=== PATIENT | female | born 1955 | race Caucasian/White ===

== ENCOUNTER → 2016-11-05 | Outpatient (CLI) | payer MEDICARE, OTHER ==
[2016-11-05 14:38] LABS: POTASSIUM 4.1 mmol/L (3.5-5.1)
== END | disposition home or self-care (01) ==
LOC: LAB 14:00
PROVIDERS: ATTEND Internal Medicine Cardiovascular Disease
DX: R53.83 Other fatigue (principal)
CPT/HCPCS: 36415; 80051

== ENCOUNTER 2018-04-01 20:33 | Emergency (ER) | payer MEDICARE, OTHER ==
[~2018-04-01] VITALS: Ht 167.6 cm; Wt 67.6 kg
[~2018-04-01 20:33] MED LIST: CARV12.52 PO; CARV25TA2 PO; CLON1TAB4 PO; ESCITALOPRAM OX20 MG PO; LISD70CA5 PO; OMEP20TA8 PO; OXYC-411 PO
--- NOTE | 2018-04-01 20:49 | PHYS DOC ---
Past Medical History Past Medical History: Anxiety, Depression, GERD, Heart Disease, Hypertension, Other Additional Past Medical Histor: DDD, Back Pain, Sick Sinus Syndrome, PTSD Past Surgical History: Cholecystectomy, Gastric Bypass, Pacemaker, Other Additional Past Surgical Histo: carpal tunnel release Alcohol Use: Rarely Drug Use: None Adult General Chief Complaint Chief Complaint: CHEST PAIN [facility] HPI Patient is a 63 year old female who presents with chest pain. She states that yesterday she had a retrosternal dull chest pain that did not radiate. She states it was not worse with exertion and did not have associated shortness of breath. There is no associated vomiting. She states that she has had previous episodes. She also admits to a mild orthostatic lightheadedness. Review of Systems Review of Systems Constitutional: Denies fever or chills Eyes: Denies change in visual acuity, redness, or eye pain HENT: Denies nasal congestion or sore throat Respiratory: Denies cough or shortness of breath Cardiovascular: No additional information not addressed in HPI GI: Denies abdominal pain, nausea, vomiting, bloody stools or diarrhea : Denies dysuria or hematuria Musculoskeletal: Denies back pain or joint pain Integument: Denies rash or skin lesions Neurologic: Denies headache, focal weakness or sensory changes Endocrine: Denies polyuria or polydipsia All other systems were reviewed and found to be within normal limits, except as documented in this note. Current Medications Current Medications Current Medications Medications (Trade) Dose Ordered Sig/Darron Start Time Stop Time Status Last Admin Dose Admin Potassium Chloride (Klor-Con) 40 meq 1X ONCE 04/01/18 21:45 04/01/18 21:46 DC 04/01/18 21:55 40 MEQ see list Allergies Allergies Allergies Coded Allergies Type Severity Reaction Last Updated Verified Sulfa (Sulfonamide Antibiotics) Allergy Intermediate Rash 07/06/17 Yes Physical Exam Physical Exam GENERAL: Awake, alert, well appearing, nontoxic HEAD/NECK/EYES: Normocephalic, Neck supple, PERRL ENT Airway patent, mucous membranes moist RESP: Nontachypneic, no respiratory distress, normal breath sounds bilaterally CV: Regular rhythm, normal perfusion ABD/GI: Soft, non-tender, no guarding, no rebound, no palpable pulsatile mass BACK: Inspection NL EXT: Neurovascularly intact, no deformities SKIN: Warm, dry NEURO: Oriented X3, normal speech, no motor deficits, no sensory deficits, CN II - XII intact PSYCH: Cooperative, appropriate affect Current Patient Data Vital Signs Vital Signs Date Time Temp Pulse Resp B/P (MAP) Pulse Ox O2 Delivery O2 Flow Rate FiO2 04/01/18 21:53 61 148/77 (100) 98 Room Air 04/01/18 21:13 21 04/01/18 20:33 98.3 98.3 Lab Values Laboratory Tests Test 04/01/18 20:55 White Blood Count 8.6 x10^3/uL (4.0-11.0) Red Blood Count 3.87 x10^6/uL (3.50-5.40) Hemoglobin 12.6 g/dL (12.0-15.5) Hematocrit 36.0 % (36.0-47.0) Mean Corpuscular Volume 93 fL (79-100) Mean Corpuscular Hemoglobin 33 pg (25-35) Mean Corpuscular Hemoglobin Concent 35 g/dL (31-37) Red Cell Distribution Width 13.3 % (11.5-14.5) Platelet Count 178 x10^3/uL (140-400) Neutrophils (%) (Auto) 59 % (31-73) Lymphocytes (%) (Auto) 30 % (24-48) Monocytes (%) (Auto) 8 % (0-9) Eosinophils (%) (Auto) 2 % (0-3) Basophils (%) (Auto) 1 % (0-3) Neutrophils # (Auto) 5.1 x10^3uL (1.8-7.7) Lymphocytes # (Auto) 2.6 x10^3/uL (1.0-4.8) Monocytes # (Auto) 0.7 x10^3/uL (0.0-1.1) Eosinophils # (Auto) 0.2 x10^3/uL (0.0-0.7) Basophils # (Auto) 0.1 x10^3/uL (0.0-0.2) Sodium Level 145 mmol/L (136-145) Potassium Level 3.1 mmol/L (3.5-5.1) L Chloride Level 107 mmol/L (98-107) Carbon Dioxide Level 30 mmol/L (21-32) Anion Gap 8 (6-14) Blood Urea Nitrogen 6 mg/dL (7-20) L Creatinine 0.9 mg/dL (0.6-1.0) Estimated GFR (Cockcroft-Gault) 63.7 BUN/Creatinine Ratio 7 (6-20) Glucose Level 75 mg/dL (70-99) Calcium Level 9.1 mg/dL (8.5-10.1) Total Bilirubin 0.2 mg/dL (0.2-1.0) Aspartate Amino Transferase (AST) 14 U/L (15-37) L Alanine Aminotransferase (ALT) 16 U/L (14-59) Alkaline Phosphatase 130 U/L (46-116) H Troponin I Quantitative < 0.017 ng/mL (0.000-0.055) Total Protein 5.9 g/dL (6.4-8.2) L Albumin 2.5 g/dL (3.4-5.0) L Albumin/Globulin Ratio 0.7 (1.0-1.7) L Lipase 67 U/L (73-393) L Laboratory Tests 04/01/18 20:55 Laboratory Tests 04/01/18 20:55 EKG EKG EKG interpreted by me at 8:45 PM reveals sinus rhythm at [address] or T- wave changes concerning for acute ischemia. QTC 436 ms. HEART SCORE REFERENCE---- Risk factors considered for determining a patient's HEART Score include: hypercholesterolemia (hyperlipidemia), hypertension, diabetes mellitus, cigarette smoking, positive family history and obesity. Major Adverse Cardiac Events (MACE) include: acute myocardial infarction, ischaemic stroke, coronary arterial occlusion and . References: Tim PARDO, Pedrito BERKOWITZ, et al. Chest pain in the emergency room: value of the HEART score. Net Heart J. 2008 Lai:16(6):191-6. PubMed PMID: [id number]; PubMed Central PMCID: [id number]. Pedrito BERKOWITZ, Tim PARDO, et al. A prospective validation of the HEART score for chest pain patients at the emergency department. Int J Cardiol. 2013 Apr 3:168(3):2153 -8. Doi: 10.1016/j.ijcard.2013.01.255. Epub 2012Sep 25. PubMed PMID: [id number]. History (Highly suspicious- 2 ; Moderately suspicious- 1 ; Slightly suspicious- 0)- 0 EKG (Significant ST deviation- 2; Nonspecific repol disturbance- 1; Normal- 0)- 0 Age: ( 65 or older- 2 points ; 46 through 64- 1 point ; 45 and younger- 0 point) - 1 Risk Factors: (Three or more- 2 points ; One or Two- 1 point ; None known- 0)- 1 Troponin: (3x upper limit- 2 points ; Abnormal- 1 point ; Normal- 0 points)- 0 Total: 2 Radiology/Procedures Radiology/Procedures []AP portable chest x-ray interpreted by me reveals no acute cardiac process, no confluent infiltrates, no pneumothorax. Official radiology interpretation to follow. Wet read put in the computer. PATIENT: AISHA CURRY ACCOUNT: [id number] : 1955 LOCATION: ER AGE: 63 SEX: F EXAM STATUS: REG ER ORD. PHYSICIAN: PACO CHRISTENSEN DO REASON: dizziness, ams PROCEDURE: CT HEAD WO CONTRAST PQRS Compliance statement: One or more of the following individualized dose reduction techniques were utilized for this examination: 1. Automated exposure control. 2. Adjustment of the mA and/or kV according to patient size. 3. Use of iterative reconstruction technique. Indication:syncope, dizziness, ams, prior sent TECHNIQUE: CT head without IV contrast COMPARISON:12/03/2012 FINDINGS: No pathologic extra-axial or intra-axial fluid collection. The ventricles and basal cisterns are within normal limits. No acute intracranial bleed. No focal loss of eddy-white differentiation. The orbits are within normal limits. No suspicious calvarial lesion. Visualized paranasal sinuses and mastoid air cells are clear. IMPRESSION: No acute intracranial process. If concern for acute ischemic stroke is high, please consider MRI brain. Electronically signed by: Suleman Noriega DO (04/01/2018 10:03 PM) [facility] Course & Med Decision Making Course & Med Decision Making Pertinent Labs and Imaging studies reviewed. (See chart for details) 9:20pm- went back in to check on patient and she was stating that she has had severe confusion yesterday and states "I need a cat scan of my head, I think I have a brain tumor". Dragon Disclaimer Dragon Disclaimer This electronic medical record was generated, in whole or in part, using a voice recognition dictation system. Departure Departure Impression: Primary Impression: Retrosternal pain Additional Impression: Transient alteration of awareness Disposition: 01 HOME, SELF-CARE Condition: STABLE Referrals: PATTY TAO MD (PCP) Problem Qualifiers PACO CHRISTENSEN DO Apr 01, 2018 20:49
[2018-04-01 21:06] LABS: BASO # 0.1 x10^3/uL (0.0-0.2); BASO % 1 % (0-3); EOS # 0.2 x10^3/uL (0.0-0.7); EOS % 2 % (0-3); HEMOGLOBIN 12.6 g/dL (12.0-15.5); LYMPH # 2.6 x10^3/uL (1.0-4.8); LYMPH % 30 % (24-48); MEAN CORPUSCULAR HEMOGLOBIN 33 pg (25-35); MEAN CORPUSCULAR HGB CONC 35 g/dL (31-37); MEAN CORPUSCULAR VOLUME 93 fL (79-100); MONO # 0.7 x10^3/uL (0.0-1.1); MONO % 8 % (0-9); NEUT # 5.1 x10^3uL (1.8-7.7); NEUT % 59 % (31-73); PLATELET COUNT 178 x10^3/uL (140-400); RED BLOOD COUNT 3.87 x10^6/uL (3.50-5.40); RED CELL DISTRIBUTION WIDTH 13.3 % (11.5-14.5); WHITE BLOOD COUNT 8.6 x10^3/uL (4.0-11.0)
[2018-04-01 21:14] LABS: CALCIUM 9.1 mg/dL (8.5-10.1); CREATININE 0.9 mg/dL (0.6-1.0); GFR 63.7; POTASSIUM 3.1 mmol/L (3.5-5.1)
[2018-04-01 21:20] LABS: ALBUMIN 2.5 g/dL (3.4-5.0); ALBUMIN/GLOBULIN RATIO 0.7 (1.0-1.7); TOTAL BILIRUBIN 0.2 mg/dL (0.2-1.0); TOTAL PROTEIN 5.9 g/dL (6.4-8.2)
[2018-04-01] MEDS ORDERED: POTASSIUM CHLORIDE 20 MEQ TABLET.ER. PO ONE (21:45)
[2018-04-01 21:53] VITALS: BP 148/77
--- NOTE | 2018-04-01 22:06 | RAD ---
PQRS Compliance statement: One or more of the following individualized dose reduction techniques were utilized for this examination: 1. Automated exposure control. 2. Adjustment of the mA and/or kV according to patient size. 3. Use of iterative reconstruction technique. Indication:syncope, dizziness, ams, prior sent TECHNIQUE: CT head without IV contrast COMPARISON:12/03/2012 FINDINGS: No pathologic extra-axial or intra-axial fluid collection. The ventricles and basal cisterns are within normal limits. No acute intracranial bleed. No focal loss of eddy-white differentiation. The orbits are within normal limits. No suspicious calvarial lesion. Visualized paranasal sinuses and mastoid air cells are clear. IMPRESSION: No acute intracranial process. If concern for acute ischemic stroke is high, please consider MRI brain. Electronically signed by: Suleman Noriega DO (04/01/2018 10:03 PM) [facility]
--- NOTE | 2018-04-01 23:11 | RAD ---
Indication:LT SIDED CHEST PAIN SINCE YESTERDAY, INTERMITTENT DIZZINESS TECHNIQUE:Portable AP chest X-ray COMPARISON:07/06/2017 FINDINGS: Stable position of left chest wall cardiac pacer with its leads projecting over the heart. Heart is normal in size. Lungs are clear. No pneumothorax or pleural effusion. Denies bony thorax within normal limits. IMPRESSION: No acute pulmonary process. Electronically signed by: Suleman Noriega DO (04/01/2018 11:07 PM) [facility]
--- NOTE | 2018-04-02 06:19 | EKG ---
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
== END 2018-04-01 22:24 | disposition home or self-care (01) ==
LOC: ER 20:33
DX: R07.2 Precordial pain (principal); R40.4 Transient alteration of awareness; R06.02 Shortness of breath; R42 Dizziness and giddiness; K21.9 Gastro-esophageal reflux disease without esophagitis; I11.9 Hypertensive heart disease without heart failure; F41.9 Anxiety disorder, unspecified; F32.9 Major depressive disorder, single episode, unspecified; F43.10 Post-traumatic stress disorder, unspecified; Z95.0 Presence of cardiac pacemaker; Z98.84 Bariatric surgery status; R41.0 Disorientation, unspecified; Z88.2 Allergy status to sulfonamides
CPT/HCPCS: 36415; 70450; 71045; 80053; 83690; 84484; 85025; 93005; 99285-25

== ENCOUNTER → 2018-04-17 | Outpatient (CLI) | payer MEDICARE, OTHER ==
[2018-04-01 21:53] VITALS: BP 148/77
--- NOTE | 2018-04-18 14:27 | RAD ---
Bilateral carotid arterial duplex study 04/17/2018 Clinical History: Carotid bruit Technique: Using a combination of real-time ultrasound imaging and color-flow and pulse Doppler imaging techniques, duplex evaluation of the carotid and vertebral arterial structures within the neck was performed. Multiple images were obtained. Velocity measurements estimating the degree of stenosis are based on NASCET criteria. Findings: Mild atheromatous/atherosclerotic plaque formation is seen involving both carotid bifurcations. The peak systolic velocities are not significantly elevated. No hemodynamically significant stenosis is seen. The vertebral arteries demonstrate normal antegrade flow. Impression: Mild atheromatous/atherosclerotic plaque formation is seen involving both carotid bifurcations. No hemodynamically significant stenosis is seen. Electronically signed by: Moises Ortiz MD (04/18/2018 2:23 PM) [id number]
== END | disposition home or self-care (01) ==
LOC: US 15:16
PROVIDERS: ATTEND Internal Medicine Cardiovascular Disease
DX: I65.23 Occlusion and stenosis of bilateral carotid arteries (principal); I13.0 Hypertensive heart and chronic kidney disease with heart failure and stage 1 through stage 4 chronic kidney disease, or unspecified chronic kidney disease; I50.9 Heart failure, unspecified; N18.2 Chronic kidney disease, stage 2 (mild); F17.210 Nicotine dependence, cigarettes, uncomplicated
CPT/HCPCS: 93880